=== PATIENT | male | born 1950 | race Caucasian/White ===

== ENCOUNTER → 2017-05-15 | Outpatient (CLI) | payer BC ==
--- NOTE | 2017-05-15 18:09 | PCVCIMAG ---
APPROVED REPORT Exam: Stress Echocardiogram Indication: Abn EKG, elevated calcium score, HTN Patient Location: Echo lab Stress Nurse: Ceci Graham RN Status: routine HR: 86 bpm Rhythm: NSR Procedure The patient underwent an Exercise Stress Test using the Suresh Protocol. Blood pressure, heart rate, and EKG were monitored. An Echocardiogram was performed by dictaphone technician in four stages in quad fashion. At peak stress, four selected images were obtained and placed side by side with resting images for comparison. Stress Test Details Stress Test: Exercise stress testing was performed using a Suresh protocol. HR Resting HR: 86 bpmMax Heart Rate (APMHR): 155 bpm Max HR Achieved: 153 bpmTarget HR (85% APMHR): 131 bpm % of APMHR: 98 Recovery HR: 99 bpm HR response to stress: Normal HR response to stress BP Resting BP: 130/82 mmHg Max BP: 160/82 mmHg Recovery BP: 148/76 mmHg ECG Resting ECG: Sinus Rhythm Stress ECG: Sinus Rhythm ST Change: Normal Arrhythmia: None Recovery ECG: Sinus Rhythm Recovery ST Change: Normal Recovery Arrhythmia: None Clinical Reason for Termination: Maximal effort, Dyspnea Stress Symptoms: Dyspnea Exercise duration: 7 min 15 sec Highest Stage Achieved: Stage 3: 3.4 mph at 14% grade. Exercise capacity: 10.1 METs Pre-Stress Echo The resting Echocardiogram showed normal left ventricular contractility with an estimated Ejection Fraction of about >55%. Normal wall motion in all segments on baseline images. Post-Stress Echo The stress Echocardiogram showed normal left ventricular contractility with an estimated Ejection Fraction of about 60-65%. Normal augmentation of wall motion in all segments on post stress images. Clinical No clinical or ECG evidence for ischemia. Conclusion Clinical Response: Non-ischemic Exercise Capacity: Average Stress ECG Response: Non-ischemic Stress Echo Images: Non-ischemic The left ventricle is normal in size and wall thickness in both the rest and stress images. Other Information Study Quality: Adequate <Conclusion> The left ventricle is normal in size and wall thickness in both the rest and stress images.
== END | disposition home or self-care (01) ==
LOC: PCVCIMAG 11:06
PROVIDERS: ATTEND Internal Medicine Cardiovascular Disease
DX: I10 Essential (primary) hypertension (principal); R94.31 Abnormal electrocardiogram [ECG] [EKG]; E78.5 Hyperlipidemia, unspecified
CPT/HCPCS: 93325; 93351